=== PATIENT | female | born 1975 | race Caucasian/White ===

== ENCOUNTER → 2017-04-29 | Day surgery (SDC) | payer OTHER ==
[~2017-04-29] VITALS: Ht 160 cm; Wt 68.9 kg
[~2017-04-29] MED LIST: *morphine SULFATE 8 MG/ML PERIprocedure ONLY ONE; ACETAMINOPHEN 1000 MG/100 ML VIAL IV ONE; CHLORHEXIDINE GLUCONATE 2 % 1 PACK (2 CLOTHS) TOPICAL PRN; FAMOTIDINE 20 MG/2 ML VIAL ONE; FLUT1SPR5 EACH NARE; INSULIN HUMAN REGULAR 1,000 UNITS/10 ML VIAL SQ PRN; KETOROLAC TROMETHAMINE 60 MG/2 ML (IM) VIAL IM ONE; LACTATED RINGER'S 1000 ML IV PRN; METOPROLOL TARTRATE 25 MG TAB PO PRN; MIDAZOLAM HCL 2 MG/2 ML VIAL ONE; ONDANSETRON HCL 4 MG/2 ML VIAL IV PUSH ONE; POVIDONE IODINE 5% (ANTISEPSIS KIT) 4 APPLICATIONS EACH NARE PRN; PROPOFOL 200 MG/20 ML AMP IV ONE; PROT40TA PO; SILVER NITR/POTASSIUM NITRATE APPLICATORS TOPICAL ONE; SODIUM CHLORID 0.9% 500 ML IV PRN; ceFAZolin 1,000 MG/NS 100 ML IV SCH; ePHEDrine/NS 25 MG/5 ML SYR IV ONE; oxyCODONE/ACETAMINOPHEN 5 MG/325 MG TAB PO PRN
--- NOTE | 2017-04-29 08:30 | PD.OP ---
Operative Report Date of Surgery: Apr 29, 2017 Preoperative Diagnosis: (1) Excessive and frequent menstruation with regular cycle (2) Iron deficiency anemia due to chronic blood loss (3) Endometriosis of uterus (4) Primary dysmenorrhea Postoperative Diagnosis: (1) Excessive and frequent menstruation with regular cycle (2) Iron deficiency anemia due to chronic blood loss (3) Endometriosis of uterus (4) Primary dysmenorrhea (5) Skin tag of female perineum Procedure: 1. hysteroscopy 2. D&C 3. endometrial ablation 4. removal of two skin tags Anesthesia: General Surgeon: Christie Marrero Application Penetration Tester(s): OR Staff Operation and Findings: IVF: 900 ml LR + IV antibiotics prior to surgery UO: 100 ml EBL: < 50 ml Findings: 1. vascular endometrial lining 2. skin tags in right vulva / perineum Specimens: two skin tags + endometrial curettings Complications: none Condition: stable Description of the procedure: The risks, benefits and alternatives of the procedure were discussed with the patient. Her questions were answered. The patient signed informed consent and wished to proceed. She was taken to the operating room with her IV running. She was placed in the supine position and was given general anesthesia without difficulties or complications. The patient was placed in the dorsal lithotomy position and was prepped and draped in the usual sterile fashion. A bivalve speculum was introduced inside the patient's vagina. The anterior aspect of the cervix was grasped with a single tooth tenaculum for manipulation. The cervix was carefully dilated; the uterus sounded to 9 cm and the cervix was measured to 4 cm. A 5 mm Myosure hysteroscope was introduced inside the patient's uterus. The cavity was noted to be within normal limits. A careful curettage was done with a sharp curet. The tissue were sent to pathology. Endometrial ablation was done following [employer] protocol without any difficulties or complications (settings: width 4.7 cm, length 5 cm, power 129). Two skin tags found in the right vulvar / perineal area were carefully removed. Silver nitrate was used to achieve excellent hemostasis. All the instruments were removed from the patient's uterus. A figure eight stitch was placed at the tenaculum site for hemostasis. All the instruments were removed from the patient's vagina. She tolerated the procedure well; she was successfully awaken from general anesthesia and was transferred to PACU in stable condition. Note: I discussed the surgical findings and surgical procedures with patient's . His questions were answered. He verbalized understanding and agreement to the procedures done. Christie Marrero MD Apr 29, 2017 08:30
[2017-04-29 14:52] VITALS: BP 101/58; PULSE 58; RESP 20; TEMP 97.4; O2SAT 99
== END | disposition home or self-care (01) ==
LOC: HSDC 10:59
PROVIDERS: ATTEND Obstetrics & Gynecology
DX: N92.0 Excessive and frequent menstruation with regular cycle (principal); D50.0 Iron deficiency anemia secondary to blood loss (chronic); N80.0 Endometriosis of uterus; N94.6 Dysmenorrhea, unspecified; N90.89 Other specified noninflammatory disorders of vulva and perineum; K21.9 Gastro-esophageal reflux disease without esophagitis
CPT/HCPCS: 00952; 11200; 58563; 88305; J0131; J0690; J1885; J2250; J2270; J2405; J3010; J7120; 88304